=== PATIENT | female | born 2005 | race African-American/Black ===

== ENCOUNTER 2024-12-27 19:05 | Emergency (ER) | payer OTHER ==
[~2024-12-27] VITALS: Ht 165.1 cm; Wt 88.9 kg
[2024-12-27 19:24] VITALS: PULSE 88; RESP 18; TEMP 98.2
[2024-12-27 20:29] VITALS: BP 132/92; PULSE 84; RESP 18; TEMP 98.2; O2SAT 97
== END 2024-12-27 20:29 | disposition home or self-care (01) ==
LOC: FSED 19:26
DX: M79.661 Pain in right lower leg (principal)
CPT/HCPCS: 85379; 99282